=== PATIENT | male | born 1990 | race Two or more races ===

== ENCOUNTER 2023-11-20 13:57 | Emergency (ER) | payer MEDICAID ==
[~2023-11-20] VITALS: Ht 172.7 cm; Wt 82.0 kg
[2023-11-20 14:03] VITALS: TEMP 98.2
[2023-11-20] MEDS: dexamethasone sod phosphate 10mg/ml inj IM STA (15:54)
[2023-11-20 16:15] VITALS: BP 116/80; PULSE 80; RESP 16; O2SAT 100
== END 2023-11-20 17:45 | disposition home or self-care (01) ==
LOC: ER 13:58
DX: R51.9 Headache, unspecified (principal); K04.7 Periapical abscess without sinus
CPT/HCPCS: 70450; 96372; 99285; J1100